=== PATIENT | female | born 1980 | race African-American/Black ===

== ENCOUNTER 2022-03-09 21:43 | Emergency (ER) | payer SELFPAY ==
[2022-03-09 22:42] LABS: Arterial Blood Carboxyhemoglob 0.9 % (0-1.5); Blood Gas Oxyhemoglobin 96.3 % (94-97); Blood O2 Saturation 98.3 % (92-98.5)
[2022-03-09 22:53] LABS: Absolute Lymphocytes (CBC) 3.7 K/uL (0.7-4.9); Hematocrit 32.3 % (36.0-45.0); Lymphocytes % 30.9 % (15.3-44.8); MCV 71.6 fL (80-100); MPV 7.9 fL (7.6-11.3); RBC Red Blood Cell Count 4.52 M/uL (3.86-4.86)
[2022-03-09] MEDS ORDERED: ASPIRIN 81 MG CHEWABLE TABLET ONE (22:53)
[2022-03-09] MEDS ORDERED: NA CHLORIDE 0.9% 2,000 ML ONE (22:53)
[2022-03-09 23:20] LABS: BUN Blood Urea Nitrogen 17 mg/dL (7-18); Bicarbonate 20 mmol/L (21-32); Glucose Level 161 mg/dL (74-106); Protime INR 1.04; Sodium Level 137 mmol/L (136-145)
[2022-03-09 23:21] LABS: ALT/SGPT 21 U/L (12-78); AST/SGOT 12 U/L (15-37); Albumin 3.6 g/dL (3.4-5.0); Alkaline Phosphatase 64 U/L (45-117); Bilirubin Total 0.2 mg/dL (0.2-1.0); Glomerular Filtration Rate 83 ml/min (=/>90); Magnesium 1.8 mg/dL (1.8-2.4); NT PRO-BNP 89 pg/mL (<125); Protein, Total 7.8 g/dL (6.4-8.2); Thyroid Stimulating Hormone 0.772 uIU/mL (0.360-3.740)
--- NOTE | 2022-03-09 23:21 | RAD REPORT ---
EXAM DESCRIPTION: Tenzin Single View03/09/2022 11:02 pm CLINICAL HISTORY: Chest pain COMPARISON: none FINDINGS: The lungs appear clear of acute infiltrate. The heart is normal size Air beneath the left hemidiaphragm IMPRESSION: Air beneath the left hemidiaphragm most likely lies within the stomach rather than pneum operitoneum. However, if the patient does have clinical symptoms to suggest an acute abdomen CT would be recommended
[2022-03-09 23:32] LABS: Bilirubin Direct < 0.1 mg/dL (0-0.2); Troponin High Sensitivity < 3.0 pg/mL (<58.9)
[2022-03-10 00:52] LABS: SARS-CoV-2 Antigen Rapid Res Negative (Negative)
[2022-03-10 00:54] LABS: Urine Blood Trace-lysed (Negative); Urine Glucose Negative (Negative); Urine Protein Negative (Negative); Urine Specific Gravity >=1.030 (1.005-1.030); Urine pH 5.5 (5.0-7.0)
[2022-03-10 01:15] LABS: Barbiturates NEGATIVE (NEGATIVE); Benzodiazepines NEGATIVE (NEGATIVE); Cocaine NEGATIVE (NEGATIVE); METHAMPHETAM NEGATIVE (NEGATIVE); Methadone NEGATIVE (NEGATIVE); Opiates NEGATIVE (NEGATIVE); Phencyclidine NEGATIVE (NEGATIVE); THC Cannibis POSITIVE (NEGATIVE)
--- NOTE | 2022-03-10 01:40 | EDPHYS ---
Physician Documentation [facility] Name: Drea Orozco Age: 41 yrs Sex: Female : 1980 Arrival Date: 03/09/2022 Time: 21:50 Bed 4 Private MD: GAURAV Physician Stevie Mckeon HPI: 03/10 01:31 This 41 yrs old Black Female presents to ER via EMS with complaints of CP, SOB AFTER kavita DRUGS. 01:31 The patient has shortness of breath at rest, with light activity. Onset: The kavita symptoms/episode began/occurred just prior to arrival. Duration: The symptoms are continuous, and are steadily getting worse. The patient's shortness of breath is aggravated by coughing, walking, is alleviated by nothing, rest, application of supplemental oxygen. The patient or guardian reports chest pain that is located primarily in the anterior chest wall, bilaterally. Onset: just prior to arrival. THC/EDIBLES GOT CP AND SOB. The pain does not radiate. Severity of symptoms: At their worst the symptoms were mild in the emergency department the symptoms are unchanged. 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 - Social history:: Smoking status: Patient denies any tobacco usage or history of. Patient uses street drugs, marijuana. - Family history:: not pertinent. ROS: 03/10 01:31 Constitutional: Negative for fever, chills, and weight loss, Eyes: Negative for injury, kavita pain, redness, and discharge, ENT: Negative for injury, pain, and discharge, Neck: Negative for injury, pain, and swelling, Abdomen/GI: Negative for abdominal pain, nausea, vomiting, diarrhea, and constipation, Back: Negative for injury and pain, : Negative for injury, bleeding, discharge, and swelling, MS/Extremity: Negative for injury and deformity, Skin: Negative for injury, rash, and discoloration, Neuro: Negative for headache, weakness, numbness, tingling, and seizure, Psych: Negative for depression, anxiety, suicide ideation, homicidal ideation, and hallucinations, Allergy/Immunology: Negative for hives, rash, and allergies, Endocrine: Negative for neck swelling, polydipsia, polyuria, polyphagia, and marked weight changes, Hematologic/Lymphatic: Negative for swollen nodes, abnormal bleeding, and unusual bruising. Cardiovascular: Positive for chest pain. Respiratory: Positive for shortness of breath, at rest. Exam: :31 Constitutional: This is a well developed, well nourished patient who is awake, alert, kavita and in no acute distress. Head/Face: Normocephalic, atraumatic. Eyes: Pupils equal round and reactive to light, extra-ocular motions intact. Lids and lashes normal. Conjunctiva and sclera are non-icteric and not injected. Cornea within normal limits. Periorbital areas with no swelling, redness, or edema. ENT: Nares patent. No nasal discharge, no septal abnormalities noted. Tympanic membranes are normal and external auditory canals are clear. Oropharynx with no redness, swelling, or masses, exudates, or evidence of obstruction, uvula midline. Mucous membranes moist. Neck: Trachea midline, no thyromegaly or masses palpated, and no cervical lymphadenopathy. Supple, full range of motion without nuchal rigidity, or vertebral point tenderness. No Meningismus. Chest/axilla: Normal chest wall appearance and motion. Nontender with no deformity. No lesions are appreciated. Cardiovascular: Regular rate and rhythm with a normal S1 and S2. No gallops, murmurs, or rubs. Normal PMI, no JVD. No pulse deficits. Respiratory: Lungs have equal breath sounds bilaterally, clear to auscultation and percussion. No rales, rhonchi or wheezes noted. No increased work of breathing, no retractions or nasal flaring. Abdomen/GI: Soft, non-tender, with normal bowel sounds. No distension or tympany. No guarding or rebound. No evidence of tenderness throughout. Back: No spinal tenderness. No costovertebral tenderness. Full range of motion. Skin: Warm, dry with normal turgor. Normal color with no rashes, no lesions, and no evidence of cellulitis. MS/ Extremity: Pulses equal, no cyanosis. Neurovascular intact. Full, normal range of motion. Neuro: Awake and alert, GCS 15, oriented to person, place, time, and situation. Cranial nerves II-XII grossly intact. Motor strength 5/5 in all extremities. Sensory grossly intact. Cerebellar exam normal. Normal gait. Psych: Awake, alert, with orientation to person, place and time. Behavior, mood, and affect are within normal limits. 01:31 ECG was reviewed by the Attending Physician. 01:31 Musculoskeletal/extremity: ROM: no acute changes, Circulation is intact in all extremities. Sensation intact. Compartment Syndrome exam of affected extremity: is normal. Weight bearing: able to fully bear weight, DVT Exam: No signs of deep vein thrombosis. no pain, no swelling, no tenderness, negative Homans' sign noted on exam, no appreciated bluish discoloration, no erythema, no increased warmth. 03:47 ECG was reviewed by the Attending Physician. [facility] Vital Signs: 03/09 21:59 BP 149 / 94; Pulse 117; Resp 20; Temp 97.5(O); Pulse Ox 100% ; Weight 104.33 kg (R); ll3 Height 5 ft. 6 in. (167.64 cm) (R); 23:00 BP 129 / 90; Pulse 108; Resp 22; Pulse Ox 100% on R/A; ll3 03/10 01:15 BP 142 / 81; Pulse 96; Resp 25; Pulse Ox 100% on R/A; ll3 01:15 BP 141 / 82; Pulse 100; Resp 22; Pulse Ox 100% on R/A; ll3 02:36 BP 139 / 89; Pulse 117; Resp 21; Pulse Ox 100% on R/A; ll3 03/09 21:59 Body Mass Index 37.12 (104.33 kg, 167.64 cm) 3 MDM: 03/09 22:00 Patient medically screened. [facility] 03/10 01:35 Differential diagnosis: CHF exacerbation, abnormal EKG, acute myocardial infarction, kavita anxiety, coronary artery disease chest wall pain, congestive heart failure Cholelithiasis costochondritis, gastritis, hiatal hernia, pancreatitis, peptic ulcer disease, pneumonia, pulmonary embolus, unstable angina, pneumonia, Pneumothorax Psychogenic pulmonary edema, Pulmonary Embolism Unstable Angina. Antibiotic administration: Not indicated. HEART Score: History: Moderately Suspicious (1), ECG: Non specific repolarization disturbance / LBTB / PM (1), Age: < or = 45 years (0), Risk Factors: 1 or 2 risk factors (1), [+ Family HX] [Obesity] Troponin: < or = 1 x Normal Limit (0). The patient was given aspirin in the Emergency Department. The patient's Wells Deep Vein Thrombosis Score was calculated as follows: Total Score: 0. This patient was found to be at low risk for a deep vein thrombosis by using the Well's assessment criteria Heart Rate >100 BPM (1.5 Pts) Total Score: 0-2 Pts- Low Risk. The patient's pulmonary embolism risk score was calculated as follows: Total Score: 0-2 points. This patient was found to be at low risk for a pulmonary embolism by using the Well's assessment criteria the patients heart rate is greater than 100 beats per minute (1.5 Pts) Total Score: 0-2 points. This patient was found to be at low risk for a pulmonary embolism by using the Well's assessment criteria. JOSSELINE Risk Score: TOTAL SCORE = 0. Immunization status:. Data reviewed: vital signs, nurses notes, lab test result(s), EKG, radiologic studies, CT scan, plain films. Data interpreted: quality assurance monitor final: rate is 100 beats/min, Pulse oximetry: on room air is 100 %. 03/09 22:03 Order name: Basic Metabolic Panel; Complete Time: 23:37 [facility] 03/09 22:03 Order name: CBC with Diff; Complete Time: 23:37 [facility] 03/09 22:03 Order name: D-Dimer; Complete Time: 23:37 [facility] 03/09 22:03 Order name: LFT's; Complete Time: 23:37 [facility] 03/09 22:03 Order name: Magnesium; Complete Time: 23:37 [facility] 03/09 22:03 Order name: NT PRO-BNP; Complete Time: 23:37 [facility] 03/09 22:03 Order name: PT-INR; Complete Time: 23:37 [facility] 03/09 22:03 Order name: Troponin HS; Complete Time: 23:37 [facility] 03/09 22:03 Order name: TSH; Complete Time: 23:37 [facility] 03/09 22:03 Order name: UDS; Complete Time: :24 [facility] 03/09 22:03 Order name: SARS RAPID; Complete Time: : [facility] 03/09 22:14 Order name: ABG: on ra; Complete Time: 23:37 03/10 00:54 Order name: Urine Dipstick-Ancillary; Complete Time: 01:24 EDMS 03/09 22:03 Order name: XRAY Chest (1 view); Complete Time: 23:37 [facility] 03/09 22:03 Order name: EKG; Complete Time: 22:04 [facility] 03/09 22:03 Order name: Cardiac monitoring; Complete Time: 22:08 [facility] 03/09 23:37 Order name: US Extremity Venous W Compression Sha [facility] 03/09 23:37 Order name: CT Chest For PE Angio [facility] 03/09 23:38 Order name: CT Abd/Pelvis - IV Contrast Only [facility] 03/10 01:22 Order name: Troponin High Sensitivity; Complete Time: 03:06 ll3 03/10 03:20 Order name: EKG; Complete Time: 03:21 [facility] 03/09 22:03 Order name: EKG - Nurse/Tech; Complete Time: 22:08 [facility] 03/09 22:03 Order name: IV Saline Lock; Complete Time: 00:33 [facility] 03/09 22:03 Order name: Labs collected and sent; Complete Time: 23:13 [facility] 03/09 22:03 Order name: O2 Per Protocol; Complete Time: 22:08 [facility] 03/09 22:03 Order name: O2 Sat Monitoring; Complete Time: 22:08 [facility] 03/09 22:03 Order name: Urine Dipstick-Ancillary (obtain specimen); Complete Time: 00:56 [facility] 03/09 22:03 Order name: Urine Test (obtain specimen); Complete Time: 00:56 [facility] 03/10 01:28 Order name: Urine Test (obtain specimen); Complete Time: 01:32 [facility] 03/10 03:20 Order name: EKG - Nurse/Tech; Complete Time: 03:38 [facility] EC:31 Rate is 114 beats/min. Rhythm is regular. QRS [place] is Normal. TN interval is normal. kavita QRS interval is normal. QT interval is normal. No Q waves. T waves are Normal. No ST changes noted. Clinical impression: Sinus tachycardia and No evidence of ischemia. Interpreted by me. Reviewed by me. 03:47 Rate is 99 beats/min. Rhythm is regular. QRS [place] is Normal. TN interval is normal. QRS kavita interval is normal. QT interval is normal. No Q waves. T waves are Normal. No ST changes noted. Clinical impression: Normal ECG and No evidence of ischemia. Interpreted by me. Reviewed by me. Administered Medications: 03/09 22:51 Drug: Aspirin Chewable Tablet 324 mg Route: PO; ll3 03/10 02:35 Follow up: Response: No adverse reaction ll3 00:32 Drug: NS 0.9% 1000 ml Route: IV; Rate: 125 ml/hr; Site: left antecubital; ll3 04:39 Follow up: Response: No adverse reaction; IV Status: Order to discontinue infusion; IV ll3 Intake: 500ml 00:32 Drug: NS 0.9% 1000 ml Route: IV; Rate: 1 bolus; Site: left antecubital; ll3 04:18 Follow up: Response: No adverse reaction; IV Status: Completed infusion; IV Intake: ll3 1000ml 02:15 Drug: Potassium Effervescent Tablet 50 mEq Route: PO; ll3 02:35 Follow up: Response: No adverse reaction ll3 02:15 Drug: ProTONIX (pantoprazole) 40 mg Route: IVP; Site: left antecubital; ll3 02:36 Follow up: Response: No adverse reaction ll3 02:15 Drug: Lovenox (enoxaparin) 1 mg/kg Route: Sub-Q; Site: abdomen; ll3 02:36 Follow up: Response: No adverse reaction ll3 02:30 Drug: Ativan (LORazepam) 1 mg Route: IVP; Site: left antecubital; ll3 04:19 Follow up: Response: No adverse reaction; Marked relief of symptoms ll3 03:38 Drug: Potassium Effervescent Tablet 25 mEq Route: PO; ll3 04:19 Follow up: Response: No adverse reaction ll3 Disposition Summary: 03/10/22 03:21 Discharge Ordered Location: Home(03/10/22 03:21) kavita Problem: new(03/10/22 03:21) kavita Symptoms: have improved(03/10/22 03:21) kavita Condition: Stable(03/10/22 03:21) kavita Diagnosis - Hypokalemia(03/10/22 03:21) kavita - Chest pain, unspecified(03/10/22 03:21) kavita - Anxiety disorder, unspecified kavita - Abuse of other non-psychoactive substances(03/10/22 03:21) kavita - Anemia, unspecified(03/10/22 03:22) kavita Followup: kavita - With: Private Physician - When: 2 - 3 days - Reason: Recheck today's complaints, Continuance of care, Re-evaluation by your physician Discharge Instructions: - Discharge Summary Sheet kavita - Panic Attack kavita - Nonspecific Chest Pain, Adult kavita - Potassium Content of Foods kavita - Substance Use Disorder kavita - Nonspecific Chest Pain, Adult, [id number] kavita - Panic Attack, [id number] kavita - Aspirin and Your Heart kavita - Generalized Anxiety Disorder, Adult kavita - Managing Anxiety, Adult kavita - Hypokalemia kavita Forms: - Medication Reconciliation Form kavita - Thank You Letter kavita - Antibiotic Education kavita - Prescription Opioid Use kavita Prescriptions: - Hydroxyzine HCl 25 mg Oral Tablet - take 1 tablet by ORAL route every 6 hours As needed; 20 tablet; Refills: 0, kavita Product Selection Permitted Signatures: Dispatcher [employer] EDStevie Jimenez MD MD cha Attema, Lee, COBBLER SOLE-C COBBLER SOLE-Cla1 Osiris Hill RN RN ll3 Corrections: (The following items were deleted from the chart) 01:52 01:39 Joe Vyas [facility] 03:19 01:39 Observation kavita kavita 03:19 01:39 Telemetry/MedSurg (observation) kavita kavita 03:19 01:39 Stable kavita kavita 03:19 01:39 new kavita kavita 03:19 01:39 have improved kavita kavita 03:19 01:39 Standard kavita kavita 03:19 01:39 kavita kavita 03:19 01:39 Chest pain, unspecified kavita kavita 03:19 01:39 Dyspnea kavita kavita 03: 01:39 Abuse of other non-psychoactive substances kavita kavita : 01:39 Anemia, unspecified kavita kavita 03:19 01:39 Hypokalemia kavita kavita 03:19 01:52 Mike Hendrix la1 kavita 03:19 03:06 Leiomyoma of uterus, unspecified kavita kavita
--- NOTE | 2022-03-10 01:40 | ER ---
Nurse's Notes [facility] Name: Drea Orozco Age: 41 yrs Sex: Female : 1980 Arrival Date: 03/09/2022 Time: 21:50 Bed 4 Private MD: Diagnosis: Hypokalemia;Chest pain, unspecified;Anxiety disorder, unspecified;Abuse of other non-psychoactive substances;Anemia, unspecified Presentation: 03/09 21:59 Chief complaint: EMS states: Toned out for anxiety and racing heart after eating ll3 edibles and smoking a friends joint, pt c/o feeling like heart is racing and states "I'm going to ", c/o dry mouth. Coronavirus screen: Vaccine status: Patient reports being unvaccinated. At this time, the client does not indicate any symptoms associated with coronavirus-19. Ebola Screen: No symptoms or risks identified at this time. Initial Sepsis Screen: Does the patient meet any 2 criteria? HR > 90 bpm. No. Patient's initial sepsis screen is negative. Does the patient have a suspected source of infection? No. Patient's initial sepsis screen is negative. Risk Assessment: Do you want to hurt yourself or someone else? Patient reports no desire to harm self or others. Onset of symptoms was March 09, 2022. Care prior to arrival: None. 21:59 Method Of Arrival: EMS 3 21:59 Acuity: CHETNA 3 ll3 Triage Assessment: 22:04 General: Appears uncomfortable, Behavior is cooperative, anxious. Pain: Denies pain. ll3 Neuro: Level of Consciousness is awake, alert, obeys commands, Oriented to person, place, time, situation. Cardiovascular: Reports Racing heart Patient's skin is warm and dry. Rhythm is sinus tachycardia. Respiratory: Respiratory effort is even, unlabored, Respiratory pattern is regular, symmetrical. Derm: Skin is pink, warm \\T\\ dry. 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 - Social history:: Smoking status: Patient denies any tobacco usage or history of. Patient uses street drugs, marijuana. - Family history:: not pertinent. Screenin/18 01:16 Abuse screen: Denies threats or abuse. Denies injuries from another. Nutritional ll3 screening: No deficits noted. Tuberculosis screening: No symptoms or risk factors identified. Fall Risk No fall in past 12 months (0 pts). No secondary diagnosis (0 pts). IV access (20 points). Ambulatory Aid- None/Bed Rest/Nurse Assist (0 pts). Gait- Normal/Bed Rest/Wheelchair (0 pts) Mental Status- Oriented to own ability (0 pts). Total Hernandes Fall Scale indicates No Risk (0-24 pts). Assessment: 03/09 22:06 General: See triage assessment. ll3 23:28 Reassessment: No changes from previously documented assessment. Patient and/or family ll3 updated on plan of care and expected duration. Pain level reassessed. Patient states symptoms have improved. 03/10 01:15 Reassessment: No changes from previously documented assessment. Patient and/or family ll3 updated on plan of care and expected duration. Pain level reassessed. Patient is alert, oriented x 3, equal unlabored respirations, skin warm/dry/pink. 02:36 Reassessment: No changes from previously documented assessment. Patient and/or family ll3 updated on plan of care and expected duration. Pain level reassessed. Patient is alert, oriented x 3, equal unlabored respirations, skin warm/dry/pink. Vital Signs: 03/09 21:59 BP 149 / 94; Pulse 117; Resp 20; Temp 97.5(O); Pulse Ox 100% ; Weight 104.33 kg (R); ll3 Height 5 ft. 6 in. (167.64 cm) (R); 23:00 BP 129 / 90; Pulse 108; Resp 22; Pulse Ox 100% on R/A; ll3 03/10 01:15 BP 142 / 81; Pulse 96; Resp 25; Pulse Ox 100% on R/A; ll3 01:15 BP 141 / 82; Pulse 100; Resp 22; Pulse Ox 100% on R/A; ll3 02:36 BP 139 / 89; Pulse 117; Resp 21; Pulse Ox 100% on R/A; ll3 03/09 21:59 Body Mass Index 37.12 (104.33 kg, 167.64 cm) ll3 ED Course: 03/09 21:50 Patient arrived in ED. mw2 22:00 Stevie Mckeon MD is Attending Physician. kavita 22:04 Triage completed. ll3 22:04 Arm band placed on Patient placed in an exam room, on a stretcher, on manager cardiac cath, ll3 on pulse oximetry. 23:04 XRAY Chest (1 view) In Process Unspecified. EDMS 23:08 Missed attempt(s): 20 gauge in right antecubital area. mh5 23:24 Patient has correct armband on for positive identification. Bed in low position. Call ll3 light in reach. Side rails up X 1. Adult w/ patient. Notified ED physician of a critical lab result(s). D-dimer 647. 23:54 Grant Bhakta, LEISA is Primary Nurse. as6 03/10 01:05 US Extremity Venous W Compression Sha In Process Unspecified. EDMS 01:38 Joe Vyas MD is Hospitalizing Provider. [facility] 01:52 Mike Hendrix MD is Hospitalizing Provider. la1 02:02 CT Chest For PE Angio In Process Unspecified. EDMS 02:02 CT Abd/Pelvis - IV Contrast Only In Process Unspecified. EDMS 04:38 No provider procedures requiring assistance completed. IV discontinued, intact, ll3 bleeding controlled, No redness/swelling at site. Pressure dressing applied. Administered Medications: 03/09 22:51 Drug: Aspirin Chewable Tablet 324 mg Route: PO; ll3 03/10 02:35 Follow up: Response: No adverse reaction ll3 00:32 Drug: NS 0.9% 1000 ml Route: IV; Rate: 125 ml/hr; Site: left antecubital; ll3 04:39 Follow up: Response: No adverse reaction; IV Status: Order to discontinue infusion; IV ll3 Intake: 500ml 00:32 Drug: NS 0.9% 1000 ml Route: IV; Rate: 1 bolus; Site: left antecubital; ll3 04:18 Follow up: Response: No adverse reaction; IV Status: Completed infusion; IV Intake: ll3 1000ml 02:15 Drug: Potassium Effervescent Tablet 50 mEq Route: PO; ll3 02:35 Follow up: Response: No adverse reaction ll3 02:15 Drug: ProTONIX (pantoprazole) 40 mg Route: IVP; Site: left antecubital; ll3 02:36 Follow up: Response: No adverse reaction ll3 02:15 Drug: Lovenox (enoxaparin) 1 mg/kg Route: Sub-Q; Site: abdomen; ll3 02:36 Follow up: Response: No adverse reaction ll3 02:30 Drug: Ativan (LORazepam) 1 mg Route: IVP; Site: left antecubital; ll3 04:19 Follow up: Response: No adverse reaction; Marked relief of symptoms ll3 03:38 Drug: Potassium Effervescent Tablet 25 mEq Route: PO; ll3 04:19 Follow up: Response: No adverse reaction ll3 Medication: 01:17 VIS not applicable for this client. ll3 Intake: 04:18 IV: 1000ml; Total: 1000ml. ll3 04:39 IV: 500ml; Total: 1500ml. ll3 Outcome: 01:39 Decision to Hospitalize by Provider. kavita 03:21 Discharge ordered by . kavita 04:38 Discharged to home via wheelchair, with significant other. ll3 04:38 Condition: stable 04:38 Discharge instructions given to patient, significant other, Instructed on discharge instructions, follow up and referral plans. medication usage, Demonstrated understanding of instructions, follow-up care, medications, Prescriptions given X 1. 04:39 Patient left the ED. ll3 Signatures: Dispatcher [employer] EDND Stevie Mckeon MD MD cha Attema, Lee, RECREATION LEADER-C RECREATION LEADER-[facility] Krys Umanzor Kurt Sher[place] 2 Grant Bhakta RN RN as6 Osiris Hill RN RN ll3
[2022-03-10] MEDS ORDERED: POTASSIUM 25 MEQ EFFERV TAB ONE ×2 (01:47→03:35)
[2022-03-10] MEDS ORDERED: PANTOPRAZOLE 40 MG INJ ONE (01:47)
[2022-03-10] MEDS ORDERED: ENOXAPARIN 100 MG/ML SYR SQ ONE (01:48)
[2022-03-10] MEDS ORDERED: LORazepam 2 MG/ML VIAL ONE (02:28)
--- NOTE | 2022-03-10 15:55 | EKG ---
Test Date: 2022-03-10 Test Time: 03:37:24 [employer]: LL MEASUREMENT RESULTS: Intervals: Rate: 99 DE: 150 QRSD: 86 QT: 348 QTc: 446 [place]: P: 58 DE: 150 QRS: 71 T: 40 INTERPRETIVE STATEMENTS: Normal sinus rhythm Normal ECG No previous ECG available for comparison Electronically Signed On 03-10-22 15:54:18 CDT by [facility]
--- NOTE | 2022-03-11 09:50 | RAD REPORT ---
EXAM DESCRIPTION: US - Extrem Venous W Compress Sha - 03/10/2022 1:03 am CLINICAL HISTORY: 41 years, Female, PAIN COMPARISON: None. FINDINGS: Multiple grayscale images as well as duplex Doppler ultrasound (color and spectral analysi s) of both lower extremities were performed. Both common femoral veins, superficial femoral veins, popliteal veins, posterior tibial and veins at the level of the calves were imaged. Spectral waveform demonstrate normal compressibility, phasic ity and augmentation. No intraluminal defects were seen. IMPRESSION: No sonographic evidence of acute lower extremity deep venous thrombosis. Electronically signed by: Michel Trinidad MD 03/10/2022 1:23 AM CDT Due to temporary technical issues with the PACS/Fluency reporting system, reports are being signed by the in house radiologists without review as a courtesy to insure prompt reporting. The interpreting radiologist is fully responsible for the content of the report.
--- NOTE | 2022-03-11 10:26 | RAD REPORT ---
EXAM DESCRIPTION: CT - Abdomen Pelvis W Contrast - 03/10/2022 2:00 am CLINICAL HISTORY: 41 years, Female, Abdominal pain, acute, nonlocalized COMPARISON: None TECHNIQUE: Contrast-enhanced images of the abdomen and pelvis were performed utilizing 2 mm slice th ickness at 2 mm interval reconstruction from the lung bases to the ischial tuberosities after the adm inistration of IV contrast. In addition multiplanar reformats in the coronal and sagittal plane were obtained and reviewed. This exam was performed according to our departmental dose-optimization protocol, which includes auto mated exposure control, adjustment of the mA and/or kV according to patient size and/or use of iterat tho reconstruction technique. FINDINGS: Evaluation of the chest will give superior report. The liver there is prominence of the right hepatic lobe corresponding to most likely Kacie's lobe. O therwise liver, gallbladder, pancreas, spleen and adrenal glands demonstrate to be unremarkable, no f ocal lesions are noted. The kidneys demonstrate normal uptake and excretion of contrast media. No evidence for nephrolithiasi s and/or hydronephrosis. Grossly the unopacified stomach, small bowel and large bowel demonstrate to be within normal limits. There is no evidence for bowel dilatation/or free air. The appendix is normal. The urinary bladder demonstrate to be unremarkable. The uterus is prominent with the presence of a hypodense lesion with minimal peripheral rim calcification corresponding to a degenerated fibroid nevin suring 6.4 x 5.2 cm on image 68/92. There are no adnexal masses. The aorta demonstrate to be normal . There is no retroperitoneal lymphadenopathy. There is no evidence for ascites. The rest of the so ft tissue and bony structures are within normal limits. IMPRESSION: 6.4 x 5.2 cm degenerated fibroid. Otherwise unremarkable CT scan of the abdomen and pelvis with contrast. Electronically signed by: Michel Trinidad MD 03/10/2022 2:42 AM CDT Due to temporary technical issues with the PACS/Fluency reporting system, reports are being signed by the in house radiologists without review as a courtesy to insure prompt reporting. The interpreting radiologist is fully responsible for the content of the report.
--- NOTE | 2022-03-11 10:36 | RAD REPORT ---
EXAM DESCRIPTION: CT - Chest For Pe Angio - 03/10/2022 2:00 am CLINICAL HISTORY: 41 years, Female, dyspnea COMPARISON: None TECHNIQUE: Multiple transaxial tomograms of the chest were obtained from the lung apices through the lung bases utilizing 2 mm slice thickness at 2 mm interval reconstruction after the administration o f large bolus of IV contrast for complete opacification of the pulmonary arteries. Subsequent 3-D maximum intensity projection images were generated in the coronal and sagittal plane f or review. This exam was performed according to our departmental dose-optimization protocol, which includes auto mated exposure control, adjustment of the mA and/or kV according to patient size and/or use of iterat tho reconstruction technique. FINDINGS: The lungs parenchyma demonstrate to be clear. No masses, nodules and/or consolidations are identified. The trachea mainstem bronchus demonstrate to be normal. There is no significant pericardial or pleura l effusions. The thoracic aorta demonstrate to be within normal limits. There is no evidence for significant aneur ysm/or dissection allowing for motion. The heart is normal in size. No evidence for right ventricular strain. There are no significant coronary artery calcifications. There is no significant mediastinal and/or hilar lymphadenopathy. The axillary regions demonstrate to be clear. Pulmonary arteries demonstrate to be normal, no intraluminal defect are seen that would suggest pulmo nary embolus. The bone windows demonstrate very minimal anterior spondylosis mid thoracic spine. No significant ske letal lesions. Evaluation of the abdomen and pelvis will be given in separate report. IMPRESSION: No CT evidence for pulmonary embolus. Unremarkable CT scan of the chest with contrast. Electronically signed by: Michel Trinidad MD 03/10/2022 2:38 AM CDT Due to temporary technical issues with the PACS/Fluency reporting system, reports are being signed by the in house radiologists without review as a courtesy to insure prompt reporting. The interpreting radiologist is fully responsible for the content of the report.
[2022-03-11 18:16] VITALS: TEMP 97.5; O2SAT 100
[2022-03-11 18:23] VITALS: BP 139/89
--- NOTE | 2022-03-13 06:43 | EKG ---
Test Date: 2022-03-09 Test Time: 22:03:05 [place]: MEASUREMENT RESULTS: Intervals: Rate: 114 SD: 164 QRSD: 92 QT: 336 QTc: 463 [place]: P: 58 SD: 164 QRS: 45 T: 31 INTERPRETIVE STATEMENTS: Sinus tachycardia Otherwise normal ECG No previous ECG available for comparison Electronically Signed On 03-13-22 06:32:50 CDT by Home Taylor
== END 2022-03-10 04:39 | disposition home or self-care (01) ==
LOC: ER 21:43
DX: R07.9 Chest pain, unspecified (principal); E87.6 Hypokalemia; F41.9 Anxiety disorder, unspecified; D64.9 Anemia, unspecified; F55.8 Abuse of other non-psychoactive substances; R06.02 Shortness of breath; Z20.822 Contact with and (suspected) exposure to COVID-19
CPT/HCPCS: 36415; 71045; 71275; 74177; 80048; 80076; 80307; 81003; 82805; 83735; 83880; 84443; 84484; 85025; 85379; 85610; 87811; 93005; 93970; 96361; 96372; 96374; 96375; 99284; C9113; J1650; J7030; Q9967